=== PATIENT | male | born 1990 | race Caucasian/White ===

== ENCOUNTER 2020-10-27 09:13 | Emergency (ER) | payer OTHER ==
[~2020-10-27] VITALS: Ht 177.8 cm; Wt 99.8 kg
[2020-10-27 09:29] VITALS: BP_SYST 140
[2020-10-27] MEDS ORDERED: DIPH-TET-PERTUS Vaccine 0.5 ML VIAL (ADACEL) I.M. ONE (09:45)
[2020-10-27] MEDS ORDERED: LIDOCAINE/EPI 1% 1:100000 20 ML VIAL INJ ONE (09:45)
[2020-10-27] MEDS ORDERED: NEOM28.36 TP (10:59)
[2020-10-27 11:06] VITALS: BP_SYST 140
== END 2020-10-27 11:06 | disposition home or self-care (01) ==
LOC: SED 09:13
DX: S01.01XA Laceration without foreign body of scalp, initial encounter (principal); Z88.6 Allergy status to analgesic agent; W18.09XA Striking against other object with subsequent fall, initial encounter; Y93.89 Activity, other specified; Y92.89 Other specified places as the place of occurrence of the external cause; Y99.8 Other external cause status
CPT/HCPCS: 70450-TC; 76376; 99284

== ENCOUNTER 2020-11-01 12:47 | Emergency (ER) | payer OTHER ==
[~2020-11-01] VITALS: Ht 177.8 cm; Wt 99.8 kg
[~2020-11-01 12:47] MED LIST: NEOM28.36 TP
[2020-11-01 12:56] VITALS: BP_SYST 156
[2020-11-01 13:14] VITALS: BP_SYST 156
== END 2020-11-01 13:14 | disposition home or self-care (01) ==
LOC: SED 12:47
DX: S01.81XD Laceration without foreign body of other part of head, subsequent encounter (principal); X58.XXXD Exposure to other specified factors, subsequent encounter
CPT/HCPCS: 99281